=== PATIENT | male | born 1985 | race Hispanic/Latino ===

== ENCOUNTER 2021-03-24 08:34 | Day surgery (SDC) | payer BC ==
--- NOTE | 2021-03-21 15:36 | RAD REPORT ---
EXAM DESCRIPTION: CT - Soft Tissue Neck W/Contr - 03/21/2021 2:45 pm CLINICAL HISTORY: D37.05 COMPARISON: None. TECHNIQUE: Computed axial tomography of the neck was obtained. 50 cc Isovue 300 was administered in travenously. Coronal and sagittal reconstruction was performed. All CT scans are performed using dose optimization technique as appropriate and may include automated exposure control or mA/KV adjustment according to patient size. FINDINGS: Prominent soft tissue within the posterior nasopharynx measuring 4 centimeters. Mildly prominent soft tissue along the right lateral oropharynx. The remainder of the pharynx, larynx and subglottic trachea unremarkable. The parotid, submandibular and thyroid glands appear unremarkable. Several borderline and mildly enlarged lymph nodes within the neck bilaterally. They mostly lies deep to the sternocleidomastoid muscle within the mid and upper neck Opacification the mastoids bilaterally. IMPRESSION: Prominent soft tissue posterior nasopharynx presumably the patient's known neoplasm. Mildly prominent asymmetric soft tissue right lateral oropharynx probably not significant. Subtle berny plasm could also have this appearance and should be correlated with the recent visualization Mild lymphadenopathy Opacification of the mastoids bilaterally may indicate a mastoiditis and should be correlated clinica lly
[2021-03-24] MEDS ORDERED: Ringers Lactate 1,000 ML IV ONE (08:44)
[2021-03-24] MEDS ORDERED: OFLOXACIN OPH 0.3%-5 ML BTL ONE ×2 (09:18→10:54)
[2021-03-24] MEDS ORDERED: EPINEPHRINE/PF 1 MG/ML AMP ONE (09:18)
[2021-03-24] MEDS ORDERED: propofoL 200 MG/20 ML VIAL IV ONE (09:19)
[2021-03-24] MEDS ORDERED: LIDOCAINE 2% MPF 5 ML VIAL ONE (09:20)
[2021-03-24] MEDS ORDERED: MIDAZOLAM HCL 2 MG/2 ML INJ ONE (09:20)
[2021-03-24] MEDS ORDERED: FENTANYL CITR 100 MCG/2 ML ONE (09:20)
[2021-03-24] MEDS ORDERED: ONDANSETRON 4 MG/2 ML VIAL ONE (09:21)
[2021-03-24] MEDS ORDERED: NEOSTIGMINE 1 MG/ML -5 ML ONE (09:23)
[2021-03-24] MEDS ORDERED: ROCURONIUM 50 MG/5 ML VIAL IV ONE (09:23)
[2021-03-24] MEDS ORDERED: GLYCOPYRROLATE 0.2 MG/ML SYR ONE (09:23)
[2021-03-24] MEDS ORDERED: dexAMETHasone 10 MG/ML VIAL ONE (09:23)
[2021-03-24] MEDS ORDERED: CELECOXIB 100 MG CAPSULE ONE (09:31)
[2021-03-24] MEDS ORDERED: ACETAMINOPHEN 500 MG TAB ONE (09:32)
[2021-03-24] MEDS ORDERED: NA CHLORIDE 0.9% 500 ML ONE ×2 (09:34→10:10)
[2021-03-24] MEDS: OXYMETAZOLINE HCL 0.05% 15ML NAS ONE ×2 (09:58→10:36)
[2021-03-24] MEDS ORDERED: OXYMETAZOLINE HCL 0.05% 15ML NAS ONE (10:18)
[2021-03-24] MEDS ORDERED: LIDOCAINE 1% W/EPI 1:100,000 MDV 20 ML VIAL ONE (10:20)
[2021-03-24 11:48] VITALS: TEMP 97
[2021-03-24 13:01] VITALS: BP 140/82; O2SAT 100
--- NOTE | 2021-03-25 05:13 | OP ---
Date of Procedure: 03/24/2021 Surgeon: PRIMO PENA Preoperative Diagnoses: 1.Nasopharyngeal neoplasm, uncertain behavior. 2.Chronic right ear serous otitis media. Postoperative Diagnoses: 1.Nasopharyngeal neoplasm, uncertain behavior. 2.Chronic right ear serous otitis media. 3.Right oropharyngeal neoplasm, uncertain behavior. Procedures: 1.Bilateral nasopharyngeal endoscopy. 2.Endoscopic biopsies of nasopharynx. 3.Biopsies of right oropharynx. Anesthesia: General endotracheal anesthesia was administered. I also infiltrated approximately 4 to 6 mL of 1% lidocaine with 1:100,000 epinephrine to nasopharyngeal neoplasm and right oropharyngeal n eoplasm. Estimated Blood Loss: Less than 5 mL. Specimens: Multiple specimens were taken from the nasopharynx and the right oropharynx. I also sepa rated the nasopharyngeal specimens into lymphoma protocol versus a squamous cell carcinoma protocol. Findings: Blockage of bilateral posterior choanae secondary to nasopharyngeal soft tissues swelling and suspected neoplasm. The patient had a polypoid appearance of the nasopharyngeal tissue and the t issue was very friable. The patient had hard indurated right oropharynx tissue, although this could be from prior infection. The patient also had evidence of right middle ear serous effusion. Complications: None. Disposition: Stable. The patient tolerated the procedure well. Indication For Procedure: The patient is a pleasant 35-year-old male who presented to my outpatient clinic with a right ear hearing loss secondary to middle ear effusion. The patient also had a distin ctive muffled hyponasal voice and when I performed bilateral nasal endoscopy, I discovered that the p osterior choanae were blocked by a nasopharyngeal lesion or significant nasopharyngeal inflammatory t issue. My primary concern was for malignancy. This is the indication to bring the patient to the op erative suite for the above-mentioned procedure. He understood. All questions were answered. Risks versus benefits and complications were explained in detail and a consent form was signed, which was placed in the chart. Description Of Procedure: The patient was transferred from the preoperative holding area to the oper ative suite by Department of Anesthesia, placed on the operating table supine and sedated and intubat ed in normal fashion. A Zeiss microscope with a 250 diopter lens was utilized to examine the right e ar and insert the tube. A 5-mm ear speculum was placed in the lateral end of the right ear canal and there was no evidence of cerumen or exudate. An incision was made into the anterior-inferior quadra nt of the right tympanic membrane and moderate amount of serous effusion was removed with a #5 Thompson suction. A Dacia bobbin grommet tympanostomy tube was inserted through the myringotomy site with al ligator forceps and repositioned with a straight pick. Antibiotic drops were placed in the canal and a cotton ball was placed into the meatal openings. Next, a 0-degree rigid nasal endoscope was introduced into bilateral nasal cavities after decongestin g the intranasal cavity with Afrin-soaked nasal pledgets. Once the pledgets were removed, the scope was advanced bilaterally along the floor back to the posterior choanae. The patient had significant nasopharyngeal swelling and friable tissue. I injected approximately 46 mL of 1% lidocaine with 1:10 0,000 epinephrine into the nasopharyngeal tissue and then multiple specimens were obtained from the n asopharynx. I placed approximately 4 specimens into a specimen cup labeled for lymphoma protocol and another 4 specimens were placed into different specimen cup and labeled for squamous cell carcinoma protocol. Hemostasis was achieved with suction Bovie cautery and the Coblator. I then reinserted th e nasal pledgets and my attention was placed to the right oropharynx. The VAN HELPER discovered a mass wal l intubating and I looked to the mass. It was inflamed right tonsillar tissue, but possible neoplasm . Thus, I took several biopsies from this area and placed it into a specimen cup. These specimens w ere submitted to pathology for evaluation. Hemostasis was achieved with suction Bovie. The pledgets were then removed from the nasal cavities and hemostasis was achieved. He was transferred back to [facility] in stable condition where he was subsequently awakened, extubated, and transf erred to the postoperative care unit. He will be discharged home to continue amoxicillin as he has b een on this medication for about 5 days now and he will finish the medication and then take Tylenol f or pain. I also would like him to use Afrin sprays t.i.d. for the next 3 days. He tolerated the pro cedure well. EMMA/SUNDARL Voice ID: [id number] Report ID: [id number]
== END 2021-03-24 13:00 | disposition home or self-care (01) ==
LOC: OR 08:34
PROVIDERS: ATTEND Otolaryngology Facial Plastic Surgery
PROC: 09BN8ZX Excision of Nasopharynx, Via Natural or Artificial Opening Endoscopic, Diagnostic (ICD-10-PCS; principal; 2021-03-24 09:30)
PROC: 099570Z Drainage of Right Middle Ear with Drainage Device, Via Natural or Artificial Opening (ICD-10-PCS; 2021-03-24 09:30)
DX: D37.05 Neoplasm of uncertain behavior of pharynx (principal); J34.89 Other specified disorders of nose and nasal sinuses; H66.3X1 Other chronic suppurative otitis media, right ear; H91.91 Unspecified hearing loss, right ear; J35.1 Hypertrophy of tonsils; Z20.822 Contact with and (suspected) exposure to COVID-19
CPT/HCPCS: 88305; 70491; 42999; 69436; U0003; Q9967; J2704; J2250; J3010; J1100; J2710; J7120; J7040 ×2; J2405; J0171

== ENCOUNTER 2021-05-19 08:17 | Day surgery (SDC) | payer BC ==
[2021-05-19] MEDS ORDERED: Ringers Lactate 1,000 ML IV ONE (08:21)
[2021-05-19] MEDS ORDERED: propofoL 200 MG/20 ML VIAL IV ONE (08:54)
[2021-05-19] MEDS ORDERED: MIDAZOLAM HCL 2 MG/2 ML INJ ONE (08:54)
[2021-05-19] MEDS ORDERED: LIDOCAINE 2% MPF 5 ML VIAL ONE (08:54)
[2021-05-19] MEDS ORDERED: FENTANYL CITR 100 MCG/2 ML ONE (08:54)
[2021-05-19] MEDS ORDERED: dexAMETHasone 10 MG/ML VIAL ONE (08:54)
[2021-05-19] MEDS ORDERED: ROCURONIUM 50 MG/5 ML VIAL IV ONE (08:54)
[2021-05-19] MEDS ORDERED: BUPIVACAINE 0.5% PF 10 ML VIAL ONE (09:28)
[2021-05-19] MEDS ORDERED: OXYMETAZOLINE HCL 0.05% 15ML NAS ONE (09:28)
[2021-05-19] MEDS ORDERED: ACETAMINOPHEN 500 MG TAB PO ONE (09:30)
[2021-05-19] MEDS ORDERED: CELECOXIB 100 MG CAPSULE PO ONE (09:30)
[2021-05-19] MEDS ORDERED: CELECOXIB 100 MG CAPSULE ONE (09:33)
[2021-05-19] MEDS ORDERED: ACETAMINOPHEN 500 MG TAB ONE (09:33)
[2021-05-19] MEDS ORDERED: GLYCOPYRROLATE 0.2 MG/ML SYR ONE (09:45)
[2021-05-19] MEDS ORDERED: ONDANSETRON 4 MG/2 ML VIAL ONE (10:07)
[2021-05-19] MEDS ORDERED: MORPHINE 10 MG/ML VIAL ONE (10:18)
[2021-05-19] MEDS ORDERED: BUPIVACAINE 0.25% PF 10 ML VIAL ONE (10:31)
[2021-05-19] MEDS: HYDROMORPHONE HCL 1 MG/ML INJ ONE ×2 (11:17→11:26)
[2021-05-19] MEDS ORDERED: HYDRALAZINE HCL 20 MG/ML VIAL ONE (11:32)
[2021-05-19 11:40] VITALS: O2SAT 99
[2021-05-19 13:09] VITALS: TEMP 97.4
[2021-05-19 13:11] VITALS: BP 138/80
--- NOTE | 2021-05-19 13:27 | OP ---
Date of Procedure: 05/19/2021 Surgeon: PRIMO PENA Preoperative Diagnoses: 1.Chronic tonsillitis. 2.Right tonsil squamous papilloma. 3.Chronic adenoiditis. 4.Bilateral chronic serous otitis media. Postoperative Diagnoses: 1.Chronic tonsillitis. 2.Right tonsil squamous papilloma. 3.Chronic adenoiditis. 4.Bilateral chronic serous otitis media. 5.Neoplasm of uncertain behavior uvula. Procedures: 1.Bilateral ear exam under general anesthesia. 2.Tonsillectomy. 3.Adenoidectomy. 4.Biopsies of right nasopharynx. 5.Uvula tip biopsy. Anesthesia: General endotracheal anesthesia was administered. I also infiltrated approximately 10 m L of 0.25% Marcaine without epinephrine into the anterior and posterior bilateral tonsillar pillars a s well as soft palate and uvula. Estimated Blood Loss: Less than 5 mL. Specimens: Obtained from the right nasopharynx, bilateral tonsils submitted to pathology for evaluat ion, uvula tip. Findings: Large hypertrophic tonsils 3/4, papillomatous lesion involved the tip of the uvula, papill omatous lesions involving the right nasopharynx, adenoidal hypertrophy 2+/4. Right ear patent intact Dacia bobbin tympanostomy tube, no evidence of bilateral middle ear effusion, normal left ear exam. Complications: None. Disposition: Stable. The patient tolerated the procedure well. Indications For Procedure: The patient is a pleasant 35-year-old male, who had initially presented t o my office with hyponasal voice and upon scoping, he had nasopharyngeal lesion that was blocking the posterior choanae. I took him to the operating room previously and biopsied the areas including the right oropharynx/tonsil and this returned a diagnosis of benign squamous papilloma. The patient has had difficulty since that time with chronic nightly snoring and we discussed elective tonsillectomy and adenoidectomy and maybe taking several other biopsies of the nasopharynx to be sure that we were dealing with a benign squamous papilloma as opposed to squamous cell carcinoma. These are indication s to bring the patient to proceed for the above mentioned procedures. He understood. All questions were answered. Risks versus benefits and complications were explained in detail and a consent form s igned, which was placed in the chart. Procedure In Detail: The patient was transferred from the preoperative holding area to the operative suite by Department of Anesthesia, placed on the operating table supine, and sedated and intubated i n normal fashion. A Zeiss microscope with auto-focus and auto-lens was used to examine the ears. A 5 mm speculum was placed in the lateral ends of bilateral ear canals. There was no evidence of cerum en. A Dacia bobbin grommet tympanostomy tube was patent and intact in the right anterior-inferior q uadrant of the right tympanic membrane. Left ear exam was normal. There was no evidence of middle e ar effusion. He was rotated 90 degrees and a shoulder roll was placed. Head and eyes were covered with sterile bl ue towels and moist Ray-Melvi was placed over the upper lip for protection. A McIvor retractor was int roduced into the right oral commissure and directed along the endotracheal tube and suspended from [employer] stand. Tonsillectomy was performed by utilizing needlepoint electrocautery on the setting of 20 f or coagulation. The superior poles were gently grasped with straight Allis clamp, retracted midline, and then dissection through the mucosa down the peritonsillar fascial plane was performed with needl epoint electrocautery and the inferior poles were amputated with suction Bovie cautery. Hemostasis w as achieved with suction Bovie. Saline irrigation was introduced into the oral cavity and removed wi th suction cautery. After close inspection of the uvula tip, I noticed that there was a papillomatous lesion at the tip t hat I removed with DeBakey forceps and curved sharp tip scissors and the specimen was handed off the field. I then cauterized the area of bleeding with suction Bovie. I then reapproximated the mucosa with 3-0 Vicryl suture in a simple interrupted fashion. I introduced into bilateral nasal cavities red rubber catheters in order to suspend the soft palate a nd uvula. Utilizing a laryngeal mirror, I was able to indirectly visualize the adenoid cavity and I noticed that the patient had significant adenoidal hypertrophy involving the right nasopharynx greate r than left nasopharynx. I removed several specimens with an angled upbiting cup forceps and these s pecimens were handed off the field. I then performed the adenoidectomy with 35 of coagulation and 20 of cutting. Saline irrigation was introduced into the adenoid cavity and removed with suction Bovie . I then infiltrated the soft palate and uvula and anterior and posterior tonsillar pillars with nell roximately 10 mL of 0.25% Marcaine without epinephrine. I then introduced a flexible orogastric tube into the esophagus and stomach and all fluid contents were removed. The patient was de-suspended from the Santos stand. The McIvor retractor was removed. The patient's j aw was checked and found to be in proper alignment. Head turban and shoulder roll were removed. He was returned back to Department of Anesthesia in stable condition where he was subsequently awakened, extubated, and transferred to postoperative care unit in stable condition. He will be discharged ho la on analgesic medication and will follow up in 1-2 weeks or sooner if needed. EMMA/ANNALEE Voice ID: [id number] Report ID: [id number]
== END 2021-05-19 12:57 | disposition home or self-care (01) ==
LOC: OR 08:17
PROVIDERS: ATTEND Otolaryngology Facial Plastic Surgery
PROC: 0CTQXZZ Resection of Adenoids, External Approach (ICD-10-PCS; 2021-05-19)
PROC: 09BN7ZX Excision of Nasopharynx, Via Natural or Artificial Opening, Diagnostic (ICD-10-PCS; 2021-05-19)
PROC: 0CB Mouth and Throat, Excision (ICD-10-PCS; 2021-05-19)
PROC: 0CTPXZZ Resection of Tonsils, External Approach (ICD-10-PCS; principal; 2021-05-19 09:30)
DX: C82.91 Follicular lymphoma, unspecified, lymph nodes of head, face, and neck (principal); J35.03 Chronic tonsillitis and adenoiditis; H65.23 Chronic serous otitis media, bilateral; D10.4 Benign neoplasm of tonsil; Z20.822 Contact with and (suspected) exposure to COVID-19
CPT/HCPCS: 42821; 42804; 42100; 88304 ×2; 88305; U0002; J0360; J2704; J2250; J3010; J1100; J1170; J7120; J2405